=== PATIENT | female | born 1950 | race Caucasian/White ===

== ENCOUNTER → 2017-03-29 | Outpatient (CLI) | payer MEDICARE, BC ==
[~2017-03-29] MED LIST: ASA325 MG PO; FLEXERIL DPS5 MG PO; KLOR-CON M2020 ME1 PO; LIPITOR DPS10 MG PO; MIRALAX PACKET17 GM PO; NORVASC5 MG PO; OXY IR DPS5 MG PO; PRILOSEC DPS20 MG PO; SENOKOT S1 TAB PO; SYNTHROID DP0.137 MG PO; TYLENOL DPS325 MG PO; ULTRAM DPS50 MG PO; ZYRTEC DPS10 MG PO
== END | disposition home or self-care (01) ==
LOC: PTH.S 09:01
DX: Z01.818 Encounter for other preprocedural examination (principal); I10 Essential (primary) hypertension

== ENCOUNTER 2017-04-13 05:33 | Inpatient (IN) | payer MEDICARE, BC ==
[~2017-04-13] VITALS: Ht 160 cm; Wt 96.1 kg
[2017-04-16] MEDS ORDERED: SYNTHROID DP0.137 MG PO (18:56)
[2017-04-16] MEDS ORDERED: PRILOSEC DPS20 MG PO (18:56)
[2017-04-16] MEDS ORDERED: LIPITOR DPS10 MG PO (18:56)
[2017-04-16] MEDS ORDERED: ZYRTEC DPS10 MG PO (18:57)
[2017-04-16] MEDS ORDERED: NORVASC5 MG PO (18:57)
[2017-04-16] MEDS ORDERED: ULTRAM DPS50 MG PO (18:57)
[2017-04-16] MEDS ORDERED: TYLENOL DPS325 MG PO (18:58)
[2017-04-16] MEDS ORDERED: MIRALAX PACKET17 GM PO (18:58)
[2017-04-16] MEDS ORDERED: SENOKOT S1 TAB PO (18:58)
[2017-04-16] MEDS ORDERED: ASA325 MG PO (18:58)
[2017-04-16] MEDS ORDERED: FLEXERIL DPS5 MG PO (18:59)
[2017-04-16] MEDS ORDERED: KLOR-CON M2020 ME1 PO (19:00)
[2017-04-16] MEDS ORDERED: OXY IR DPS5 MG PO (19:00)
--- NOTE | 2017-04-28 16:15 | OR ---
ADMIT: 04/13/2017 RM/LOC: 517 [facility] MR#: [id number] [address] CHLOEMIKE OLIVERAKESHIA James [address] [place] [address] Operative/Delivery Room Report SEX: F AGE: 66 : 1950 SURGERY DATE: 04/13/2017 SURGEON: Michael Bhakta MD ORDER CLERK: Charles Lozano PA-C PREOPERATIVE DIAGNOSIS: Right knee degenerative joint disease. POSTOPERATIVE DIAGNOSIS: Right knee degenerative joint disease. OPERATION: Right total knee arthroplasty using intraarticular block. ANESTHESIA: Attempted spinal followed by general. COMPLICATIONS: None. ESTIMATED BLOOD LOSS: 100 mL. TOTAL TOURNIQUET TIME: 48 minutes. COMPONENTS: 1. Size 5 lugged Attune femoral component. 2. Size 4 Attune tibial component. 3. A 35-mm oval patellar button. 4. 6 mm posterior stabilized insert. DESCRIPTION OF OPERATION: The patient was taken to the operating room and the correct extremity was identified. The patient received a spinal anesthetic. The right lower extremity was prepped and draped in a standard fashion. The leg was exsanguinated and tourniquet inflated. An anterior incision was made and dissection was carried through the subcutaneous tissue. A medial parapatellar arthrotomy was performed. An appropriate medial release was performed. The patella was subluxed laterally. The infrapatellar fat pad was partially excised for exposure. At that point, the distal femur was opened up with a drill. We cut 10 mm off the distal femur in 5 degrees of valgus using an intramedullary guide. We then cut the tibia perpendicular to its long axis taking it flush with the affected side with an extramedullary guide. We then sized the femur to a size 5 and pinned this in appropriate external rotation aligning it with the epicondylar axis. We then made anterior, posterior, and chamfer cuts with the 4-in-1 cutting block. We opened up the joint space and removed the remaining posterior osteophytes, meniscus, and PCL ligament. We made our box cut centralizing the femoral component. The tibia was subluxed anteriorly, fit for a size 4 modular tibial tray, punched and drilled in appropriate external rotation. We then removed the remaining tibial osteophytes. We then cut the patella perpendicular to its long axis taking it flush with the lateral facet and fit it for a 35 mm oval patellar button restoring patellar height. We then extended the knee and opened the joint space to obtain posterior hemostasis and perform a posterior intraarticular block. We then put in trial components with a 6 mm insert. At that point, we ADMIT: 04/13/2017 RM/LOC: 517 [facility] MR#: [id number] [place] [id number] DAVE CORONA [address] [place] [address] Operative/Delivery Room Report SEX: F AGE: 66 : 1950 had full extension, full flexion, patella tracked centrally and no lateral release was required. The knee was also stable to varus and valgus stress testing. All trial components were removed and all the bony surfaces were Waterpik'd clean. We then cemented the tibia, femur, and patella in a standard fashion, put in the trial 6-mm insert and held the knee in extension. While the cement hardened, we completed our intra-articular block. Once the cement was hard, we deflated the tourniquet, obtained hemostasis, irrigated out the wound thoroughly, removed the trial insert and put in the real insert. The knee was again found to be stable with full range of motion. No Hemovac drain was used. At that point, the extensor mechanism was closed with an interrupted 0-Vicryl suture with the knee in flexion. The subcutaneous tissue was closed 2-0 Vicryl and marcia were placed in the skin. Mepilex Border dressing was then applied. The patient was taken to the recovery room in stable condition with no complications. Michael Bhakta MD/ bernice JOB #: [id number] CC: Michael Bhakta, Attending Physician Tena Arreola, Family Physician
--- NOTE | 2017-04-28 16:15 | HP ---
ADMIT: 04/13/2017 RM/LOC: W.01 [facility] MR#: [id number] [id number] [address] [facility] [place] [id number] [place] [address] Pre-OP History and Physical SEX: F AGE: 66 : 1950 DATE OF SERVICE: CHIEF COMPLAINT: Knee pain. HISTORY OF PRESENT ILLNESS: The patient is a 66-year-old female. She has had a chronic longstanding bilateral knee pain, right worse than left. Her right knee pain is limiting her activity. She has failed injections. At this point, being admitted for right total knee arthroplasty. PAST MEDICAL HISTORY: Past medical problems include hypertension, hypothyroidism, and peptic ulcer disease.. MEDICATIONS: Include: 1. Glucosamine. 2. Tylenol. 3. Zyrtec. 4. Omeprazole. 5. Levothyroxine. 6. Maxzide. 7. Tramadol. 8. Lipitor. 9. Norvasc. 10.Caltrate. ALLERGIES: NONE. SOCIAL HISTORY: Denies history of tobacco or alcohol use. REVIEW OF SYSTEMS: Negative. PHYSICAL EXAMINATION: Healthy-appearing female. Walks with an antalgic gait ADMIT: 04/13/2017 RM/LOC: W.01 [facility] MR#: [id number] [address] [facility] [address] [place] [address] Pre-OP History and Physical SEX: F AGE: 66 : 1950 on the right lower extremity. She has a varus deformity in the knees. Significant crepitus. Range of motion is 5 to 110 degrees. No pain in the hip. Leg is neurovascularly intact. DIAGNOSTIC DATA: X-rays AP, lateral, PA flexion view shows advanced right knee arthritis, complete medial collapse. IMPRESSION: Right knee degenerative joint disease. PLAN: Talked about different options. Failed conservative care. Planning on doing total knee arthroplasty. She is aware of different risks, benefits, and agreed to proceed. She has been seen and cleared from a medical standpoint. Michael Bhakta MD/ bernice JOB #: [id number] CC: Michael Bhakta, Attending Physician Tena Arreola, Family Physician
--- NOTE | 2017-05-01 08:57 | DS ---
ADMIT: 04/13/2017 RM/LOC: 517 [facility] MR#: [id number] [id number] [address] MIKE CORONAKESHIA James [address] [place] [address] General Discharge Summary SEX: F AGE: 66 : 1950 ADMISSION DATE: 04/13/2017 DISCHARGE DATE: 04/15/2017 REASON FOR ADMISSION: Elective right total knee arthroplasty after failing conservative care. PREOPERATIVE DIAGNOSIS: Right knee degenerative joint disease. POSTOPERATIVE DIAGNOSIS: Right knee degenerative joint disease. PROCEDURE PERFORMED: Right total knee arthroplasty. SURGEON: Michael Bhakta MD. PRODUCT MARKETER: Charles Lozano PA-C. ANESTHESIA: Spinal followed by general. COMPLICATIONS: None. ESTIMATED BLOOD LOSS: 100 mL. TOURNIQUET TIME: 48 minutes. ACTIVE MEDICAL PROBLEMS: Obstructive sleep apnea, hypothyroidism, allergic rhinitis, gastroesophageal reflux disease without esophagitis, hypertension, hyperlipidemia, thoracic disk disease, and toxic diffuse goiter. HOSPITAL COURSE: The patient was admitted on 04/13/2017, for elective right total knee arthroplasty done successfully without any complications by Dr. Bhakta. The patient tolerated the procedure well. Postoperatively, the patient's pain was well controlled with the use of oral analgesics. She did have some hypokalemia, her potassium levels were at 3.1, on 04/13/2017 as well as 04/15/2017. She was then put on potassium chloride 20 mEq twice a day and was discharged with this medication as well. By postoperative day #2, she was doing well with physical therapy and was safe and stable and ready for discharge home with plans for outpatient physical therapy. DISCHARGE MEDICATIONS: 1. Atorvastatin 10 mg in the evening. 2. Levothyroxine 137 mcg everyday. 3. Omeprazole 20 mg everyday. 4. Tramadol 50 mg one to two tablets every 6 hours as needed for pain. 5. Amlodipine 5 mg everyday. 6. Cetirizine 10 mg everyday. 7. Aspirin 325 mg at bedtime for 30 days. ADMIT: 04/13/2017 RM/LOC: 517 [facility] MR#: [id number] [address] DAVE CORONA [address] [place] [address] General Discharge Summary SEX: F AGE: 66 : 1950 8. MiraLax 17 g everyday. 9. Senokot 2 tablets twice daily. 10.Acetaminophen 650 mg every 6 hours as needed for pain. 11.Flexeril 5 mg one to two tablets every 8 hours as needed for muscle spasms. 12.Oxycodone IR 5 mg one to two tablets every 4 hours as needed. 13.Potassium 20 mEq twice daily for three days then once daily. DISCHARGE INSTRUCTIONS: The patient was discharged home with plans for outpatient physical therapy per total knee arthroplasty protocol. Follow up in the orthopedic office in 2 weeks for wound check, in 6 weeks with x-ray. Follow up with primary care as directed. LUIZ Ferguson / Michael Bhakta MD / bernice JOB #: [id number] CC: Michael Bhakta MD, Attending Physician Tena Arreola MD, Family Physician
== END 2017-04-15 16:55 | disposition home or self-care (01) | DRG 470 ==
LOC: 5MS 05:33 → WOR 05:33 → 5MS 08:24
PROVIDERS: ADMIT Orthopaedic Surgery
PROC: 0SRC0J9 Replacement of Right Knee Joint with Synthetic Substitute, Cemented, Open Approach (ICD-10-PCS; principal; 2017-04-13)
DX: M17.11 Unilateral primary osteoarthritis, right knee (principal); I10 Essential (primary) hypertension; E87.6 Hypokalemia; K21.9 Gastro-esophageal reflux disease without esophagitis; G47.30 Sleep apnea, unspecified; E03.9 Hypothyroidism, unspecified; Z87.11 Personal history of peptic ulcer disease